=== PATIENT | male | born 2000 | race African-American/Black ===

== ENCOUNTER 2018-07-05 21:57 | Emergency (ER) | payer SELFPAY ==
[2018-07-05 22:04] VITALS: BP 148/79; PULSE 82; TEMP 98.6; BMI 24.3
[2018-07-05 22:34] LABS: BASO % 1.7 % (0-2.0); EOS % 0.1 % (0-4.5); HEMATOCRIT 44.8 % (35.4-49); HEMOGLOBIN 14.6 GM/dl (11.7-16.9); LYMPH % 9.8 % (8-40); MCH 29.9 pg (25.7-33.7); MCHC 32.7 g/dl (32.0-35.9); MEAN CELL VOLUME 91.5 fl (80-96); MEAN PLT VOLUME 9.4 fl (7.5-11.1); MONO % 5.7 % (3.8-10.2); NEUT % 82.7 % (42.8-82.8); PLATELET COUNT 216 K/MM3 (134-434); RBC 4.89 M/mm3 (4.00-5.60); RDW 12.4 % (11.9-15.9); WHITE BLOOD COUNT 8.4 K/mm3 (4.0-10.8)
--- NOTE | 2018-07-05 22:41 | PDOC ---
History of Present Illness - General Chief Complaint: Pain, Acute Stated Complaint: NAUSEA/VOMITING/ABD PAIN Time Seen by Provider: 07/05/18 21:59 - History of Present Illness Initial Comments: This otherwise healthy 17-year-old male presents with 1 day history of nausea/ vomiting/diarrhea. The patient states that he awakened about 6 AM today with nausea. He vomited mainly yellow liquid and fell back to sleep; over the next few hours he awakened with nausea and again vomited. In the early afternoon he developed loose stools. Since then, he has had multiple episodes of vomiting and diarrhea. There has been no bloody or coffee-ground vomitus. He denies blood or mucus in his stools. He reportedly had fever to 102 degrees Fahrenheit at 1 PM today; he is noted body aches throughout the day. He did not take any medications for his fever or body aches. No known sick contacts; no recent travel. 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 No recent unusual food ingestion/restaurant food. Past History - Past Medical History Allergies/Adverse Reactions: Allergies Allergy/AdvReac Type Severity Reaction Status Date / Time No Known Allergies Allergy Verified 02/14/13 15:13 Home Medications: Ambulatory Orders No Home Medications 0 dose .ROUTE UTDICT 02/14/13 Ondansetron [Zofran Odt -] 4 mg SL TID PRN #12 od.tablet 07/06/18 COPD: No - Suicide/Smoking/Psychosocial Hx Smoking Status: No Smoking History: Current some day smoker Have you smoked in the past 12 months: Yes Number of Cigarettes Smoked Daily: 0 Information on smoking cessation initiated: Yes Review of Systems - Review of Systems Able to Perform ROS?: Yes Comments:: 12 point review of systems is negative except for what is noted in the history of present illness *Physical Exam - Vital Signs Last Vital Signs Temp Pulse Resp BP Pulse Ox 98.6 F 82 16 148/79 100 07/05/18 21:59 07/05/18 21:59 07/05/18 21:59 07/05/18 21:59 07/05/18 21:59 - Physical Exam Comments: GENERAL: Young adult male, alert and oriented 3, in mild distress secondary to nausea/bodyaches HEAD: Normal with no signs of trauma. EYES: PERRLA, EOMI, sclera anicteric, conjunctiva clear. ENT: Ears normal, nares patent, oropharynx clear without exudates. Dry mucous membranes. NECK: Normal range of motion, supple without lymphadenopathy, JVD, or masses. LUNGS: Breath sounds equal, clear to auscultation bilaterally. No wheezes, and no crackles. HEART:Regular rate and rhythm, normal S1 and S2 without murmur, rub or gallop. ABDOMEN:.normal bowel sounds No guarding,tenderness or rebound.No masses No distention. EXTREMITIES: Normal range of motion, no edema. No clubbing or cyanosis. No erythema, or tenderness. NEUROLOGICAL: Cranial nerves II through XII grossly intact. Normal speech. No focal neurological deficits. MUSCULOSKELETAL: Back non-tender to palpation, no CVA tenderness SKIN: Warm, Dry, normal turgor, no rashes or lesions noted. Moderate Sedation - Procedure Monitoring Vital Signs: Procedure Monitoring Vital Signs Temperature 98.6 F 07/05/18 21:59 Pulse Rate 82 07/05/18 21:59 Respiratory Rate 16 07/05/18 21:59 Blood Pressure 148/79 07/05/18 21:59 O2 Sat by Pulse Oximetry (%) 100 07/05/18 21:59 ED Treatment Course - LABORATORY CBC & Chemistry Diagram: 07/05/18 22:17 07/05/18 22:17 - ADDITIONAL ORDERS Additional order review: 07/05/18 22:17 RBC 4.89 MCV 91.5 MCHC 32.7 RDW 12.4 MPV 9.4 Neutrophils % 82.7 Lymphocytes % 9.8 Monocytes % 5.7 Eosinophils % 0.1 Basophils % 1.7 Progress Note - Progress Note Progress Note: CBC/chemistry profile/lipase sent. IV hydration normal saline, 1 L, begun and patient given 4 mg of Zofran IV. Because of the prominent myalgia pain, patient also given Toradol 30 mg IV. Second liter of normal saline administered IV Patient felt significantly better after Zofran stating that nausea had completely resolved. He also felt some relief of his body aches after Toradol IV. CBC/chemistry profile and lipase were essentially normal. Clinical presentation most consistent with viral gastroenteritis. Patient discharged with recommendations to maintain a clear liquid diet and to advance to solid foods cautiously. Prescription for Zofran ODT 4 mg to be used up to 3 times a day as needed for recurrent nausea. Also, Imodium/Kaopectate can be used as needed for persistent diarrhea. Patient should return to the emergency room if he has severe vomiting/abdominal pain/fever. He should follow-up with his primary care doctor in the next 5 days *DC/Admit/Observation/Transfer Diagnosis at time of Disposition: Gastroenteritis - Discharge Dispostion Disposition: HOME Condition at time of disposition: Stable - Prescriptions Prescriptions: Ondansetron [Zofran Odt -] 4 mg SL TID PRN #12 od.tablet PRN Reason: Nausea - Referrals - Patient Instructions Printed Discharge Instructions: Viral Gastroenteritis Additional Instructions: Clear liquids; advance diet cautiously Rest; avoid strenuous activity for the next few days Zofran ODT 4 mg up to 3 times a day as needed for nausea Imodium/Kaopectate as needed for persistent diarrhea Return to ER if you have persistent vomiting or experience abdominal pain/fever/ bloody diarrhea Follow-up with your primary care physician within the next 5 days - Post Discharge Activity
[2018-07-05 22:45] LABS: ALBUMIN 4.4 g/dl (3.5-5.0); ALK PHOS 65 U/L (32-92); ANION GAP 6 MMOL/L (8-16); BILIRUBIN,TOTAL 1.1 mg/dl (0.2-1.0); BLOOD UREA NITROGEN 11 mg/dl (7-18); CALCIUM 9.5 mg/dl (8.4-10.2); CHLORIDE 100 mmol/L (98-107); CO2 25 mmol/L (22-28); CREATININE 1.2 mg/dl (0.6-1.3); GLUCOSE,RANDOM 112 mg/dl (74-106); POTASSIUM 3.6 mmol/L (3.5-5.1); SGOT/AST 26 U/L (10-42); SGPT/ALT 20 U/L (10-40); SODIUM 131 mmol/L (136-145); TOT PROT 7.4 g/dl (6.4-8.3)
[2018-07-05] MEDS ORDERED: ONDANSETRON 4 MG/2 ML VIAL IVPUSH ONE ×2 (23:10→23:11)
[2018-07-05] MEDS ORDERED: KETOROLAC TROMETHAMINE 30 MG/1 ML VIAL IVPUSH ONE (23:11)
[2018-07-05] MEDS ORDERED: SODIUM CHLORIDE 1,000 ML IV STA (23:11)
[2018-07-05] MEDS ORDERED: ONDANSETRON 4 MG/2 ML VIAL ONE (23:12)
[2018-07-05] MEDS ORDERED: KETOROLAC TROMETHAMINE 30 MG/1 ML VIAL ONE (23:12)
== END 2018-07-06 00:26 | disposition home or self-care (01) ==
LOC: FER 21:57
PROC: 3E0333Z Introduction of Anti-inflammatory into Peripheral Vein, Percutaneous Approach (ICD-10-PCS; principal; 2018-07-05)
PROC: 3E033GC Introduction of Other Therapeutic Substance into Peripheral Vein, Percutaneous Approach (ICD-10-PCS; 2018-07-05)
PROC: 3E0337Z Introduction of Electrolytic and Water Balance Substance into Peripheral Vein, Percutaneous Approach (ICD-10-PCS; 2018-07-05)
DX: K52.9 Noninfective gastroenteritis and colitis, unspecified (principal)
CPT/HCPCS: 36415; 80053; 83690; 85025; 99283-25; J7030